=== PATIENT | female | born 1955 | race Hispanic/Latino ===

== ENCOUNTER 2022-03-10 06:54 | Day surgery (SDC) | payer OTHER ==
[2022-03-07 10:05] VITALS: BP_SYST 132; BP_SYST 184; BP_DIAS 66; BP_DIAS 77
[2022-03-07 10:11] LABS: HEMATOCRIT 40.2 % (36-48); MEAN CORPUSCULAR HEMOGLOBIN 28.8 pg (27.0-33.0); MEAN CORPUSCULAR HGB CONC 32.8 g/dL (32.0-36.0); MEAN CORPUSCULAR VOLUME 87.8 fL (79-99); RED BLOOD CELL COUNT(AUTO) 4.58 MIL/uL (4.00-5.50); RED CELL DISTRIBUTION WIDTH 13.1 % (11.0-15.5); WHITE BLOOD COUNT (AUTO) 9.4 K/uL (4.8-10.8)
[2022-03-07 10:20] LABS: CREATININE 1.1 mg/dL (0.5-1.5); POTASSIUM 4.9 mmol/L (3.5-5.1)
[2022-03-07 10:23] LABS: INR 0.95 (0.85-1.15); PROTHROMBIN TIME 10.4 SEC (9.6-11.6)
[2022-03-07 10:24] LABS: PARTIAL THROMBOPLASTIN TIME 24.7 SEC (26.3-35.5)
[2022-03-10] VITALS (8 sets, daily range): BP systolic 99–155; BP diastolic 48–64
[~2022-03-10] VITALS: Ht 149.9 cm; Wt 85.1 kg
[~2022-03-10 06:54] MED LIST: AEC81 PO; ATOR10TA69 PO; DULO30CA52 PO; DULO60CA64 PO; INSU100I26 SQ; MELO-106 PO; METF-444 PO; METO-391 PO; OLME40TA18 PO; SITA100T12 PO
[2022-03-10] MEDS ORDERED: 0.9%NACL 1000ML 1,000 ML IV ONE (07:51)
[2022-03-10] MEDS ORDERED: DiphenhydrAMINE HCL 50 MG/ML VIAL ONE (07:51)
[2022-03-10] MEDS ORDERED: MIDAZOLAM HCL 1 MG/ML 2ML VIAL ONE (10:19)
[2022-03-10] MEDS ORDERED: IOHEXOL-350 75 ML VIAL IV ONE (10:19)
[2022-03-10] MEDS ORDERED: LIDOCAINE HCL 400MG/20ML VIAL ONE (10:19)
[2022-03-10] MEDS ORDERED: BIVALIRUDIN 250 MG/VIAL IV ONE (10:19)
[2022-03-10] MEDS ORDERED: NITROGLYCERIN 50MG VIAL ONE (10:19)
[2022-03-10] MEDS ORDERED: FENTANYL CITRATE PF 50 MCG/1 ML 2ML VIAL ONE (10:19)
[2022-03-10] MEDS ORDERED: HEPARIN 10,000 UNIT/10ML (1,000 UNIT/ML) VIAL ONE (10:19)
[2022-03-10] MEDS ORDERED: DIPHENHYDRAMINE HCL 25 MG CAPSULE ONE (10:24)
[2022-03-10] MEDS ORDERED: GLUCAGON 1MG KIT 1 MG ML IM PRN (12:00)
[2022-03-10] MEDS ORDERED: DEXTROSE 50%-WATER 50 ML DISP.SYRIN IV PRN (12:00)
[2022-03-10] MEDS ORDERED: INSULIN HUMULIN R 100 UNIT/ML 3ML SQ SCH (16:30)
== END 2022-03-10 14:50 | disposition home or self-care (01) ==
LOC: DAH 06:54
PROVIDERS: ATTEND Internal Medicine Cardiovascular Disease
DX: R94.39 Abnormal result of other cardiovascular function study (principal); R07.89 Other chest pain; I20.8 Other forms of angina pectoris; I10 Essential (primary) hypertension; E11.9 Type 2 diabetes mellitus without complications; Z90.710 Acquired absence of both cervix and uterus; Z90.49 Acquired absence of other specified parts of digestive tract; Z98.891 History of uterine scar from previous surgery; Z98.890 Other specified postprocedural states; Z82.49 Family history of ischemic heart disease and other diseases of the circulatory system; Z83.3 Family history of diabetes mellitus; Z83.438 Family history of other disorder of lipoprotein metabolism and other lipidemia; Z88.6 Allergy status to analgesic agent; Z79.82 Long term (current) use of aspirin; Z79.84 Long term (current) use of oral hypoglycemic drugs; Z79.01 Long term (current) use of anticoagulants
CPT/HCPCS: 80048; 85027; 85610; 85730; 36415; 93005; 93458; 82948 ×2; C1894; C1760; J1200; J3010; J3490 ×2; J7030; J2250; J1644; Q9967; A4215; A4222; A4221; A4663; A4216; A4606; A4223 ×3; 99156; 99157; J0583; Q0163